=== PATIENT | female | born 1970 ===

== ENCOUNTER 2023-10-05 10:04 | Outpatient (CLI) | payer OTHER ==
--- NOTE | 2023-10-05 12:54 | Ultrasound Report ---
PROCEDURE: Pelvic w/Transvaginal INDICATIONS: IRREGULAR MENSTRUATION TECHNIQUE: Real-time scanning was performed of the pelvic organs, with image documentation. Additional endovagi nal scanning was necessary due to incomplete visualization of the adnexal and endometrial structures by transabdominal scanning. COMPARISON: None. FINDINGS: Uterus: 8.3 x 3.1 x 5.2 cm. Endometrium measures 5 mm. Anteverted positioning. There are small subserosal fibroids, measuring up to 2.5 x 2.1 and 2 x 1.3 cm. Ovaries: Not well seen. There is excessive bowel gas shadowing the area. Other: No pathologic free fluid. IMPRESSION: Small subserosal fibroids are present. No acute pelvic abnormality. Endometrium measures 5 mm, which is within normal limits assuming patient is perimenopausal. Reviewed by: Jb Lindsay MD on 10/05/2023 12:53 PM PST Approved by: Jb Lindsay MD on 10/05/2023 12:53 PM PST Station ID: [id number]
== END 2023-10-05 10:05 | disposition home or self-care (01) ==
LOC: DI 10:04
PROVIDERS: ATTEND Naturopath
DX: N92.6 Irregular menstruation, unspecified (principal); D25.2 Subserosal leiomyoma of uterus